=== PATIENT | female | born 1985 | race Caucasian/White ===

== ENCOUNTER 2017-05-23 13:42 | Emergency (ER) | payer OTHER ==
[2017-05-23 14:10] VITALS: BP 130/75
--- NOTE | 2017-05-23 15:23 | EDM.PDOC ---
ED HPI GENERAL MEDICAL PROBLEM - General Chief Complaint: ENT Problem Stated Complaint: [id number] STREP THROAT Time Seen by Provider: 05/23/17 15:20 Source of Information: Reports: Patient History Limitations: Reports: No Limitations - History of Present Illness INITIAL COMMENTS - FREE TEXT/NARRATIVE: 31 yo female presents c/o generalized body aches and fever x 36 hours. States that he t-max was 100.7. C.o mild headache, decreased appetite, and sore throat. No other complaints currently. Onset Date: 05/22/17 Onset Time: 10:00 Duration: Getting Worse Location: Reports: Generalized Quality: Reports: Ache Severity: Mild Improves with: Reports: Medication (tylenol/motrin) Worsens with: Reports: None Associated Symptoms: Reports: Headaches, Malaise Treatments CLINICAL MEDICAL ASSISTANT: Reports: Acetaminophen, NSAIDS Throat Pain Score (Numeric/FACES): 3 - Related Data Allergies Allergy/AdvReac Type Severity Reaction Status Date / Time No Known Allergies Allergy Verified 04/21/16 09:48 Home Meds: Home Meds Vit #108/Iron/FA [ One Tablet] 1 tab PO DAILY 11/07/14 [History ] Past Medical History - Past Health History Medical/Surgical History: Denies Medical/Surgical History Gastrointestinal History: Reports: Chronic Constipation FORENSIC SCIENTIST History: Reports: - Past Surgical History HEENT Surgical History: Reports: Other (See Below) Other HEENT Surgeries/Procedures: wisdom teeth Social & Family History - Family History Family Medical History: Noncontributory - Tobacco Use Smoking Status *Q: Never Smoker Second Hand Smoke Exposure: No - Caffeine Use Caffeine Use: Reports: Coffee - Alcohol Use Days Per Week of Alcohol Use: 3 Number of Drinks Per Day: 2 Total Drinks Per Week: 6 - Recreational Drug Use Recreational Drug Use: No - Sexual History Sexual History: Reports: Single Partner, Vaginal [place] - Living Situation & Occupation Living situation: Reports: , with Spouse, with Family Occupation: Other ED ROS ENT - Review of Systems Review Of Systems: ROS reveals no pertinent complaints other than HPI. ED EXAM, ENT - Physical Exam Exam: See Below Exam Limited By: No Limitations General Appearance: Alert, WD/WN, No Apparent Distress Eye Exam: Bilateral Eye: PERRL Ears: Normal External Exam, Normal Canal, Hearing Grossly Normal, Normal TMs Nose: Normal Inspection, Normal Mucousa, No Blood Mouth/Throat: Normal Gums, Normal Lips, Normal Oropharynx, Normal Teeth, Throat Pain, Tonsillar Exudates (mild ) Head: Atraumatic, Normocephalic Neck: Normal Inspection, Supple, Non-Tender, Full Range of Motion Respiratory/Chest: No Respiratory Distress, Lungs Clear, Normal Breath Sounds, No Accessory Muscle Use, Chest Non-Tender Neurological: Alert, Oriented Skin: Warm, Dry, Intact, Normal Color, No Rash Lymphatic: Adenopathy (Bilateral mandibular nodes) Course - Vital Signs Last Recorded V/S: Last Vital Signs Temp 97.8 F 05/23/17 14:09 Pulse 78 05/23/17 14:09 Resp 18 05/23/17 14:09 BP 130/75 05/23/17 14:09 Pulse Ox 100 05/23/17 14:09 - Orders/Labs/Meds Orders: Active Orders 24 hr Category Date Time Status CULTURE STREP A CONFIRMATION [RM] Stat Lab 05/23/17 14:16 Results STREP SCRN A RAPID W CULT CONF [RM] Stat Lab 05/23/17 14:16 Results Labs: Laboratory Tests 05/23/17 05/23/17 Range/Units 15:26 15:26 WBC 11.5 H (5.0-10.0) 10^3/uL RBC 4.17 L (4.2-5.4) 10^6/uL Hgb 13.3 (12.0-16.0) g/dL Hct 39.3 (37.0-47.0) % MCV 94.2 (80-100) fL MCH 31.9 (27.0-34.0) pg MCHC 33.8 (33.0-35.0) g/dL Plt Count 246 (150-450) 10^3/uL Neut % (Auto) 79.7 H (42.2-75.2) % Lymph % (Auto) 10.6 L (20.5-50.1) % [place] % (Auto) 9.1 H (2-8) % Eos % (Auto) 0.5 L (1.0-3.0) % Baso % (Auto) 0.1 (0.0-1.0) % Sodium 139 (135-145) mmol/L Potassium 4.2 (3.6-5.0) mmol/L Chloride 101 (101-111) mmol/L Carbon Dioxide 27.0 (21.0-31.0) mmol/L Anion Gap 15.2 BUN 11 (7-18) mg/dL Creatinine 0.7 (0.6-1.3) mg/dL Est Cr Clr Drug Dosing 122.81 mL/min Estimated GFR (MDRD) > 60 Glucose 100 (74-105) mg/dL Calcium 9.6 (8.4-10.2) mg/dl - Re-Assessments/Exams Free Text/Narrative Re-Assessment/Exam: 05/23/17 16:19 Pt with no acute signs of infection in labs. Departure - Departure Time of Disposition: 16:20 Disposition: Home, Self-Care 01 Condition: Good Clinical Impression: Pharyngitis Qualifiers: Pharyngitis/tonsillitis etiology: unspecified etiology Qualified Code(s): J02.9 - Acute pharyngitis, unspecified - Discharge Information Instructions: Pharyngitis Forms: ED Department Discharge Additional Instructions: Take the medrol dose pack as directed. You may continue to alternate ibuprofen and tylenol for fever and aches. Drink plenty of fluids and rest the next few days. Your cultures of your throat should return by the end of the week, you may call for results but we will notify you of any positive results. Follow up with your PCP. - My Orders Last 24 Hours: My Active Orders 05/23/17 14:16 CULTURE STREP A CONFIRMATION [RM] Stat STREP SCRN A RAPID W CULT CONF [RM] Stat - Assessment/Plan Last 24 Hours: My Active Orders 05/23/17 14:16 CULTURE STREP A CONFIRMATION [RM] Stat STREP SCRN A RAPID W CULT CONF [RM] Stat
[2017-05-23 15:56] LABS: CHLORIDE,CL 101 mmol/L (101-111); SODIUM,NA 139 mmol/L (135-145)
== END 2017-05-23 16:33 | disposition home or self-care (01) ==
LOC: DL.ED 13:42
DX: J02.9 Acute pharyngitis, unspecified (principal)
CPT/HCPCS: 36415; 80048; 85025; 87081; 87430; 87804; 99283

== ENCOUNTER 2022-06-15 06:58 | Inpatient (IN) | payer OTHER ==
[2022-06-15] MEDS ORDERED: Misoprostol 25 MCG (1/4 of 100 MCG) Tab VAG PRN (08:31)
[2022-06-15] MEDS ORDERED: Acetaminophen 325 MG Tab PO PRN ×2 (08:31→20:40)
[2022-06-15] MEDS ORDERED: Sodium Chloride 0.9% 10 ML Syringe FLUSH PRN ×2 (08:31→20:40)
[2022-06-15] MEDS ORDERED: Carboprost Tromethamine 250 MCG/1 ML Amp IM PRN (08:33)
[2022-06-15] MEDS ORDERED: Misoprostol 400 MCG (4 X 100 MCG TAB) RECTAL PRN (08:33)
[2022-06-15] MEDS ORDERED: Ondansetron 4 MG/2 ML SDV IVPUSH PRN (08:33)
[2022-06-15] MEDS ORDERED: Methylergonovine 0.2 MG/1 ML Amp IM PRN (08:33)
[2022-06-15] MEDS ORDERED: Lidocaine 1% 30 ML SDV INJECT PRN (08:33)
[2022-06-15] MEDS ORDERED: Tranexamic Acid 1,000 MG in Sodium Chloride 0.9% 100 ML IV PRN (08:33)
[2022-06-15] MEDS ORDERED: Lactated Ringers 1,000 ML IV SCH ×2 (08:45)
[2022-06-15] MEDS ORDERED: Oxytocin/Normal Saline 30 UNIT/500 ML BAG IV SCH ×2 (08:45)
[2022-06-15] MEDS ORDERED: Sodium Chloride 0.9% 10 ML Syringe FLUSH SCH (09:00)
[2022-06-15] MEDS ORDERED: Benzocaine/Menthol 20%-0.5% Spray 78 GM Cannister TOP PRN (20:40)
[2022-06-15] MEDS ORDERED: Simethicone 80 MG Tab.Chew PO PRN (20:40)
[2022-06-15] MEDS ORDERED: Oxytocin 10 Units/1 ML SDV IM PRN (20:40)
[2022-06-15] MEDS ORDERED: Witch Hazel Medicated Pads 100/Jar TOP PRN (20:44)
[2022-06-15] MEDS ORDERED: fentaNYL 100 MCG/2 ML SDV ONE (20:59)
[2022-06-15] MEDS ORDERED: fentaNYL 100 MCG/2 ML SDV IVPUSH ONE (20:59)
[2022-06-15] MEDS: Docusate Sodium 100 MG Cap PO PRN (21:03)
[2022-06-15] MEDS: Ibuprofen 800 MG Tab PO PRN (21:03)
[2022-06-15] MEDS ORDERED: ceFAZolin 1 GM in Sodium Chloride 0.9% 50 ML IV ONE (21:43)
[2022-06-16] MEDS: Ibuprofen 800 MG Tab PO PRN ×2 (06:42→14:41)
[2022-06-16 08:48] VITALS: BP 105/58; PULSE 71
[2022-06-16] MEDS ORDERED: Prenatal Multivitamin with Calcium/Folic Acid/Iron Tab PO SCH (09:00)
[2022-06-16] MEDS: Docusate Sodium 100 MG Cap PO PRN (10:16)
== END 2022-06-16 20:50 | disposition home or self-care (01) | DRG 805 ==
LOC: DL.OB 07:30 → OBSVTOIN 20:05
PROVIDERS: ADMIT Family Medicine; ATTEND Family Medicine
PROC: 10E0XZZ Delivery of Products of Conception, External Approach (ICD-10-PCS; principal; 2022-06-15)
PROC: 10907ZC Drainage of Amniotic Fluid, Therapeutic from Products of Conception, Via Natural or Artificial Opening (ICD-10-PCS; 2022-06-15)
PROC: 0HQ9XZZ Repair Perineum Skin, External Approach (ICD-10-PCS; 2022-06-15)
PROC: 3E0P7VZ Introduction of Hormone into Female Reproductive, Via Natural or Artificial Opening (ICD-10-PCS; 2022-06-15)
DX: O99.02 Anemia complicating childbirth (principal); U07.1 COVID-19; Z37.0 Single live birth; O98.52 Other viral diseases complicating childbirth; D64.9 Anemia, unspecified; O70.0 First degree perineal laceration during delivery; Z3A.39 39 weeks gestation of pregnancy
CPT/HCPCS: 36415; 59409; 85027; A9270-GY; J0690; J2590; J3010; J7120; U0002